=== PATIENT | male | born 1990 | race Caucasian/White ===

== ENCOUNTER 2020-09-09 18:06 | Emergency (ER) | payer OTHER ==
[~2020-09-09] VITALS: Ht 180.3 cm; Wt 142.4 kg
[~2020-09-09 18:06] MED LIST: BACTRIM DS TAB1 EACH PO; KEFLEX500 MG PO
[2020-09-09] MEDS ORDERED: LISINOPRIL20 MG PO (18:40)
[2020-09-09] MEDS ORDERED: PHENTERMINE PO (18:41)
[2020-09-09] MEDS ORDERED: SERTRALINE HCL100 MG PO (18:41)
[2020-09-09 20:04] VITALS: BP 141/96
== END 2020-09-09 20:05 | disposition home or self-care (01) ==
LOC: M.ERS 18:06
DX: B34.9 Viral infection, unspecified (principal); Z20.822 Contact with and (suspected) exposure to COVID-19